=== PATIENT | female | born 1985 | race Caucasian/White ===

== ENCOUNTER 2016-07-28 19:27 | Emergency (ER) | payer OTHER ==
[~2016-07-28] VITALS: Ht 172.7 cm; Wt 72.0 kg
[~2016-07-28 19:27] MED LIST: CLAR10TA7 PO
[2016-07-28 19:29] VITALS: BP 127/64; PULSE 96; RESP 16; TEMP 97.7; O2SAT 100
[2016-07-28 19:41] VITALS: PULSE 95; RESP 16; O2SAT 100
[2016-07-28] MEDS ORDERED: PROG100C PO (19:45)
[2016-07-28] MEDS ORDERED: ASPI81CH CHEW (19:45)
[2016-07-28] MEDS ORDERED: SODIUM CHLOR 0.9% 1000 ML INJ 1,000 ML IV ONE (19:50)
[2016-07-28] MEDS ORDERED: SODIUM CHLORIDE 0.9% FLUSH 5 ML FLUSH IVF PRN (20:00)
[2016-07-28 20:02] LABS: AUTOMATED NEUTROPHIL # 12.2 TH/MM3 (1.8-7.7); BASOPHIL % 0.3 % (0.0-2.0); EOSINOPHIL % 0.2 % (0.0-4.0); HEMATOCRIT 39.5 % (35.0-46.0); HEMO FLAGS DIFF FINAL; LYMPH % 6.8 % (9.0-44.0); LYMPHOCYTE # 0.9 TH/MM3 (1.0-4.8); MEAN CELL VOLUME 86.6 FL (80.0-100.0); MEAN CORPUSCULAR HEMOGLOBIN 29.7 PG (27.0-34.0); MEAN CORPUSCULAR HGB CONC 34.3 % (32.0-36.0); MONO % 2.2 % (0.0-8.0); NEUT % 90.5 % (16.0-70.0); PLATELET COUNT 271 TH/MM3 (150-450); RED BLOOD COUNT 4.56 MIL/MM3 (4.00-5.30); RED CELL DISTRIBUTION WIDTH 13.1 % (11.6-17.2); WHITE BLOOD COUNT 13.5 TH/MM3 (4.0-11.0)
--- NOTE | 2016-07-28 20:05 | PD ---
HPI Chief Complaint: GI Complaint Time Seen by Provider: 19:42 Travel History International Travel<30 days: No Contact w/Intl Traveler<30days: No Traveled to known affect area: No History of Present Illness HPI Patient is a 31-year-old female who presents to emergency room with complaints of nausea and vomiting and abdominal cramping. Patient reports that she is 12 weeks , reports that she had an episode of nausea vomiting abdominal cramping earlier today, reports that she was concerned that she may be having a miscarriage as she had 2 previous miscarriages which she had similar symptoms. Patient reports that with her first 2 miscarriages, she carried until 8 weeks as well as 6 weeks. Reports that she is being worked up by UNDERWRITING TECHNICIAN at this time for reasons why she had this 2 miscarriages. Patient reports that she did follow up with UNDERWRITING TECHNICIAN and did have an 8 week ultrasound which showed a viable IUP with good heart rate. Patient reports no abdominal pain at this time. Patient denies vaginal bleeding or discharge. Patient denies abdominal pain. Patient denies nausea or vomiting. Patient here because she is concerned about her . [facility] Past Medical History ADD: Yes Diminished Hearing: No Influenza Vaccination: No ?: : 0 Para: 0 Miscarriage: 0 : 0 Dilation and Curettage (D&C): Yes Past Surgical History Gynecologic Surgery: Yes (LEFT BREAST LUMPECTOMY 2004) Other Surgery: Yes (LUMPECTOMY L BREAST) Family History Family History: Negative Social History Alcohol Use: No (2 DRINKS A WEEK) Tobacco Use: Yes (07/22- PPD) Substance Use: No Allergies-Medications (Allergen,Severity, Reaction): Coded Allergies: Amoxicillin (Verified Allergy, Severe, HIVES, 07/28/16) Penicillin (Verified Allergy, Severe, HIVES, 07/28/16) Reported Meds & Prescriptions Reported Meds & Active Scripts Active Reported Aspirin 81 Mg Chew 81 Mg CHEW DAILY Progesterone Micronized 100 Mg Cap 100 Mg PO TID Review of Systems General / Constitutional: No: Fever Eyes: No: Visual changes HENT: No: Headaches Cardiovascular: No: Chest Pain or Discomfort Respiratory: No: Shortness of Breath Gastrointestinal: Positive: Nausea, Vomiting, No: Diarrhea, Abdominal Pain, Constipation Genitourinary: No: Urgency, Frequency, Dysuria, Hematuria, Pelvic Pain, Flank Pain, Discharge, Vaginal Bleeding Musculoskeletal: No: Pain Skin: No Rash Neurologic: No: Weakness Psychiatric: No: Depression Endocrine: No: Polydipsia Hematologic/Lymphatic: No: Easy Bruising Physical Exam Narrative GENERAL: No acute distress, nontoxic SKIN: Warm and dry. HEAD: Atraumatic. Normocephalic. EYES: Pupils equal and round. No scleral icterus. No injection or drainage. ENT: No nasal bleeding or discharge. Mucous membranes pink and moist. NECK: Trachea midline. No JVD. CARDIOVASCULAR: Regular rate and rhythm. No murmur appreciated. RESPIRATORY: No accessory muscle use. Clear to auscultation. Breath sounds equal bilaterally. GASTROINTESTINAL: Abdomen soft, non-tender, nondistended. Hepatic and splenic margins not palpable. MUSCULOSKELETAL: No obvious deformities. No clubbing. No cyanosis. No edema. NEUROLOGICAL: Awake and alert. No obvious cranial nerve deficits. Motor grossly within normal limits. Normal speech. PSYCHIATRIC: Appropriate mood and affect; insight and judgment normal. Data Data Last Documented VS Vital Signs Date Time Temp Pulse Resp B/P Pulse Ox O2 Delivery O2 Flow Rate FiO2 07/28/16 19:41 95 16 100 07/28/16 19:29 97.7 Orders Beta Hcg (Quant/Titer) (07/28/16 19:50) Complete Blood Count With Diff (07/28/16 19:50) Basic Metabolic Panel (Bmp) (07/28/16 19:50) Us Pelvis (Ques Preg/Ectopic) (07/28/16 ) Urinalysis - C+S If Indicated (07/28/16 19:50) Iv Access Insert/Monitor (07/28/16 19:50) Sodium Chloride 0.9% Flush (Ns Flush) (07/28/16 20:00) Sodium Chlor 0.9% 1000 Ml Inj (Ns 1000 M (07/28/16 19:50) Ed Urine Pregnancytest Poc (07/28/16 19:50) Labs Laboratory Tests Test 07/28/16 07/28/16 19:55 19:58 White Blood Count 13.5 TH/MM3 Red Blood Count 4.56 MIL/MM3 Hemoglobin 13.5 GM/DL Hematocrit 39.5 % Mean Corpuscular Volume 86.6 FL Mean Corpuscular Hemoglobin 29.7 PG Mean Corpuscular Hemoglobin 34.3 % Concent Red Cell Distribution Width 13.1 % Platelet Count 271 TH/MM3 Mean Platelet Volume 8.1 FL Neutrophils (%) (Auto) 90.5 % Lymphocytes (%) (Auto) 6.8 % Monocytes (%) (Auto) 2.2 % Eosinophils (%) (Auto) 0.2 % Basophils (%) (Auto) 0.3 % Neutrophils # (Auto) 12.2 TH/MM3 Lymphocytes # (Auto) 0.9 TH/MM3 Monocytes # (Auto) 0.3 TH/MM3 Eosinophils # (Auto) 0.0 TH/MM3 Basophils # (Auto) 0.0 TH/MM3 CBC Comment DIFF FINAL Differential Comment Sodium Level 136 MEQ/L Potassium Level 4.0 MEQ/L Chloride Level 104 MEQ/L Carbon Dioxide Level 23.2 MEQ/L Anion Gap 9 MEQ/L Blood Urea Nitrogen 11 MG/DL Creatinine 0.52 MG/DL Estimat Glomerular Filtration 137 ML/MIN Rate Random Glucose 99 MG/DL Calcium Level 8.4 MG/DL Human Chorionic Gonadotropin, 84742 MIU/ML Quant Urine Color YELLOW Urine Turbidity CLEAR Urine pH 6.0 Urine Specific Dix 1.009 Urine Protein NEG mg/dL Urine Glucose (UA) NEG mg/dL Urine Ketones NEG mg/dL Urine Occult Blood NEG Urine Nitrite NEG Urine Bilirubin NEG Urine Urobilinogen LESS THAN 2.0 MG/DL Urine Leukocyte Esterase NEG Urine RBC LESS THAN 1 /hpf Urine WBC 2 /hpf Urine Squamous Epithelial 4 /hpf Cells Urine Bacteria OCC /hpf Urine Mucus FEW /lpf Microscopic Urinalysis Comment CULT NOT INDICATED MDM Medical Decision Making Medical Screen Exam Complete: Yes Emergency Medical Condition: Yes Interpretation(s) Vital Signs Date Time Temp Pulse Resp B/P Pulse Ox O2 Delivery O2 Flow Rate FiO2 07/28/16 19:41 95 16 100 07/28/16 19:29 97.7 96 16 127/64 100 Differential Diagnosis threatened miscarriage, gastoenteritis, gastritis Narrative Course Patient is a 31-year-old female who is 12 weeks who presents to ER with c/o of lower abdominal cramping with nausea and vomiting. Patient reports that the last time she had these symptoms, she had 2 miscarriages. Pt concerned about her . Patient with no vaginal bleeding or discharge at this time. Patient with no abdominal pain. Plan to obtain pelvic US Patient does have an appointment with senior product development scientist this following week Reviewed all labs and all studies with patient in detail. Patient given copy of her lab work as well as her copy of her ultrasound. Patient with a single live IUP with cardiac activity with heart rate at 171 bpm, no evidence of adnexal mass or free fluid Patient will follow-up with her UNDERWRITING TECHNICIAN and return to ER as needed, signs and symptoms of when to return to the emergency room reviewed with patient in detail. Diagnosis Primary Impression: Threatened Patient Instructions: General Instructions Additional Instructions: Please follow-up with your UNDERWRITING TECHNICIAN as scheduled Return to ER as needed Please bring your lab work as well as her ultrasound report to doctor's office for follow-up on your studies from today. Disposition: 01 DISCHARGE HOME Condition: Stable Vijaya Palumbo DO Jul 28, 2016 20:05 Vijaya Palumbo DO Jul 28, 2016 20:05
[2016-07-28 20:27] LABS: BICARBONATE 23.2 MEQ/L (21.0-32.0)
[2016-07-28 20:29] LABS: BACTERIA, URINE OCC /hpf; BLOOD, URINE NEG (NEG); COMMENT (UR) CULT NOT INDICATED; CULTURE IF INDICATED CULT NOT INDICATED; GLUCOSE,URINE NEG (NEG); KETONE, URINE NEG (NEG); MUCUS URINE FEW /lpf (OCC); NITRITE,URINE NEG (NEG); SQUAMOUS EPITHELIAL CELL URINE 4 /hpf (0-5); URINE COLOR YELLOW (YELLW/STRAW)
--- NOTE | 2016-07-28 21:24 | RADRPT ---
EXAM DATE/TIME: 07/28/2016 20:36 [place] COMPARISON: No previous studies available for comparison. INDICATIONS : Ectopic. LAB(S): Beta-hC MEDICAL HISTORY : . SURGICAL HISTORY : Left breast lumpectomy. Left knee surgery. Dilation and curettage. ENCOUNTER: Initial ACUITY: 1 day PAIN SCORE: 8/10 LOCATION: Bilateral pelvis MEASUREMENTS: UTERUS: 14.8 x 9.2 x 5.2 cm ENDOMETRIAL STRIPE: 15 mm RIGHT OVARY: 3.7 x 2.2 x 1.8 cm LEFT OVARY: 3.6 x 1.8 x 1.7 cm FINDINGS: There is a single intrauterine with cardiac activity. The crown-rump length correlates to a gestational age of 12 weeks 0 days. heart rate was calculated at 171 bpm. No adnexal mass o r free fluid within the cul-de-sac is noted. The ovaries are unremarkable bilaterally. CONCLUSION: 1. Single intrauterine with cardiac activity with a crown-rump length correlating to a ges tational age of 12 weeks 0 days. 2. No evidence of adnexal mass or free fluid within the cul-de-sac. Deejay Hernandez MD on July 28, 2016 at 21:18 Board Certified Radiologist. This report was verified electronically.
== END 2016-07-28 21:51 | disposition home or self-care (01) ==
LOC: NEPC 19:27
DX: Z3A.12 12 weeks gestation of pregnancy (principal); O20.0 Threatened abortion; O09.891 Supervision of other high risk pregnancies, first trimester
CPT/HCPCS: 76700; 80048; 81001; 84702; 84703; 85025; 96360; 99284; J7030

== ENCOUNTER → 2016-08-06 | Outpatient (CLI) | payer OTHER ==
[~2016-08-06] MED LIST changes: +ASPI81CH CHEW; -CLAR10TA7 PO; +PROG100C PO
== END ==
LOC: HPND 13:00
PROVIDERS: ATTEND Obstetrics & Gynecology
DX: Z36 Encounter for antenatal screening of mother (principal); O26.20 Pregnancy care for patient with recurrent pregnancy loss, unspecified trimester; Z3A.13 13 weeks gestation of pregnancy
CPT/HCPCS: 36416; 76813

== ENCOUNTER 2016-10-19 18:08 | Emergency (ER) | payer OTHER ==
--- NOTE | 2016-10-19 19:33 | PD ---
HPI Chief Complaint decreased movement Date Seen: Oct 19, 2016 Travel History International Travel<30 Days: No Contact w/Intl Traveler<30Days: No Known Affected Area: No History of Present Illness HPI Patient is 31-year-old white female at 23-1/2 weeks presents for evaluation of decreased movement. She denies pain leakage or bleeding. She sees Dr. cline for care. Para: 0 : 3 History Obstetric History Obstetric History 2 previous early losses Past Surgical History Narrative Surgical She had a D&C , knee surgery Social History Alcohol Use: No Tobacco Use: No Substance Abuse: No Allergies-Medications (Allergen,Severity, Reaction): Coded Allergies: Amoxicillin (Verified Allergy, Severe, HIVES, 07/28/16) Penicillin (Verified Allergy, Severe, HIVES, 07/28/16) Home Meds Reported Medications Aspirin 81 Mg Chew81 Mg CHEW DAILY Ref 0 07/28/16 Progesterone Micronized 100 Mg [id number] Mg PO TID #30 CAP Ref 0 07/28/16 Review of Systems General / Constitutional: No: Fever, Weight Gain, Chills, Other Eyes: No: Diploplia, Blurred Vision, Visual changes, Pain, Photophobia HENT: No: Headaches, Vertigo, Lightheadedness Cardiovascular: No: Irregular Rhythm, Chest Pain or Discomfort, Palpitations, Tachycardia, Syncope, Varicosities, Edema, Cyanosis Respiratory: No: Cough, Short of Breath, Other Gastrointestinal: No: Nausea, Vomiting, Diarrhea Genitourinary: No: Decreased Urinary Output, Oliguria Musculoskeletal: No: Limited ROM, Weakness, Cramping, Edema, Pain Skin: No Rash, No Itching, No Dryness, No Lumps, No Change in Pigmentation, No Change in Nails, No Alopecia, No Lesions Neurologic: No: Weakness, Dizziness, Syncope, Focal Abnormalities, Coordination Problem, Headache, Slurred Speech, Seizures Psychiatric: No: Depression, Suicidal Ideations, Homicidal Ideation Endocrine: No: Heat Intolerance, Cold Intolerance, Polydipsia, Polyuria, Other Physical Exam Narrative GENERAL: Well-nourished, well-developed patient. SKIN: Warm and dry. HEAD: Normocephalic and atraumatic. EYES: No scleral icterus. No injection or drainage. ENT: No nasal drainage noted. Mucous membranes pink. Airway patent. NECK: Supple, trachea midline. No JVD. CARDIOVASCULAR: Regular rate and rhythm without murmurs, gallops, or rubs. RESPIRATORY: Breath sounds equal bilaterally. No accessory muscle use. BREASTS: Bilateral exam showed no masses , no retractions, no nipple discharge. ABDOMEN/GI: Abdomen soft, non-tender, bowel sounds present, no rebound, no guarding Gravid to [23-] weeks size Fundal Height: [23-] GENITOURINARY: Presentation: [vtx-] Membranes: [intact ] Uterine Contractions: [ none-] FHT's: 144 ] EXTREMITIES: No cyanosis or edema. BACK: Nontender without obvious deformity. No CVA tenderness. NEUROLOGICAL: Awake and alert. Motor and sensory grossly within normal limits. Five out of 5 muscle strength in all muscle groups. Normal speech. Data Data Orders Ob Poc Ultrasound (10/19/16 ) Labs Ultrasound was done here on OB ED by means at the bedside. Ultrasound shows an active cephalic female fetus of 22 weeks 6 days size adequate amniotic fluid, normal anatomy scan and growth parameters MDM Interpretation(s) Patient is 31-year-old white female at 23-1/2 weeks who presents with decreased movement. No other acute problems. Obstetric ultrasound done on OB ED tonight shows an active fetus with size equal dates and normal anatomy no problems noted, patient given photographs of baby Plan Plan patient discharged home to follow-up with Dr. cline in the usual fashion return for any other problems Diagnosis Diagnosis: Primary Impression: Decreased movement in in second trimester, antepartum Disposition: 01 DISCHARGE HOME Condition: Stable David Monson II, MD Oct 19, 2016 19:33
== END 2016-10-19 19:52 | disposition home or self-care (01) ==
LOC: HOBED 18:08
DX: O36.8120 Decreased fetal movements, second trimester, not applicable or unspecified (principal); Z3A.23 23 weeks gestation of pregnancy
CPT/HCPCS: 76815

== ENCOUNTER 2016-12-01 22:28 | Emergency (ER) | payer OTHER ==
--- NOTE | 2016-12-01 23:11 | PD ---
HPI Chief Complaint dec FM Date Seen: December 01, 2016 Travel History International Travel<30 Days: No Contact w/Intl Traveler<30Days: No Known Affected Area: No History of Present Illness HPI 31 yo WF 29 wks with dec FM noted tonight , no other problem , tried to eat a cookie and milk but did not increase motion., here in [place] FHR reactive for 29 wks and now she feels baby moving well, she sees Dr Miller for PNC Para: 0 : 3 Miscarriage: 2 History Obstetric History Obstetric History 2 early preg loss Social History Alcohol Use: No Tobacco Use: No Substance Abuse: No Allergies-Medications (Allergen,Severity, Reaction): Coded Allergies: Amoxicillin (Verified Allergy, Severe, HIVES, 07/28/16) Penicillin (Verified Allergy, Severe, HIVES, 07/28/16) Home Meds Reported Medications Aspirin 81 Mg Chew81 Mg CHEW DAILY Ref 0 07/28/16 Progesterone Micronized 100 Mg [id number] Mg PO TID #30 CAP Ref 0 07/28/16 Review of Systems General / Constitutional: No: Fever, Weight Gain, Chills, Other Eyes: No: Diploplia, Blurred Vision, Visual changes, Pain, Photophobia HENT: No: Headaches, Vertigo, Lightheadedness Cardiovascular: No: Irregular Rhythm, Chest Pain or Discomfort, Palpitations, Tachycardia, Syncope, Varicosities, Edema, Cyanosis Respiratory: No: Cough, Short of Breath, Other Gastrointestinal: No: Nausea, Vomiting, Diarrhea Genitourinary: No: Decreased Urinary Output, Oliguria Musculoskeletal: No: Limited ROM, Weakness, Cramping, Edema, Pain Skin: No Rash, No Itching, No Dryness, No Lumps, No Change in Pigmentation, No Change in Nails, No Alopecia, No Lesions Neurologic: No: Weakness, Dizziness, Syncope, Focal Abnormalities, Coordination Problem, Headache, Slurred Speech, Seizures Psychiatric: No: Depression, Suicidal Ideations, Homicidal Ideation Endocrine: No: Heat Intolerance, Cold Intolerance, Polydipsia, Polyuria, Other Physical Exam Narrative GENERAL: Well-nourished, well-developed patient. SKIN: Warm and dry. HEAD: Normocephalic and atraumatic. EYES: No scleral icterus. No injection or drainage. ENT: No nasal drainage noted. Mucous membranes pink. Airway patent. NECK: Supple, trachea midline. No JVD. CARDIOVASCULAR: Regular rate and rhythm without murmurs, gallops, or rubs. RESPIRATORY: Breath sounds equal bilaterally. No accessory muscle use. BREASTS: Bilateral exam showed no masses , no retractions, no nipple discharge. ABDOMEN/GI: Abdomen soft, non-tender, bowel sounds present, no rebound, no guarding Gravid to [-29] weeks size Fundal Height: [29-] Membranes: [intact ] Uterine Contractions: [0-] FHT's: Category: [-1] Baseline: [-133] Reactive: [yes-] Variability: [mod-] Decels: [0-] EXTREMITIES: No cyanosis or edema. BACK: Nontender without obvious deformity. No CVA tenderness. NEUROLOGICAL: Awake and alert. Motor and sensory grossly within normal limits. Five out of 5 muscle strength in all muscle groups. Normal speech. MDM Interpretation(s) 31 yo WF 29 wks c/o dec FM , NST reactive here , no CTXs , Plan D/C home Diagnosis Diagnosis: Primary Impression: Decreased movement affecting management of in third trimester Disposition: 01 DISCHARGE HOME Condition: Stable Patient Instructions: General Instructions, Early Labor Signs (ED), Movement (ED) Departure Forms: Tests/Procedures David Monson II, MD December 01, 2016 23:11
== END 2016-12-01 23:41 | disposition home or self-care (01) ==
LOC: HOBED 22:28
DX: O36.8130 Decreased fetal movements, third trimester, not applicable or unspecified (principal); Z3A.29 29 weeks gestation of pregnancy
CPT/HCPCS: 99283

== ENCOUNTER 2017-02-12 16:58 | Inpatient (IN) | payer OTHER ==
[~2017-02-12] VITALS: Ht 165.1 cm; Wt 90.7 kg
[2017-02-12 18:15] LABS: AUTOMATED NEUTROPHIL # 7.4 TH/MM3 (1.8-7.7); BASOPHIL % 0.4 % (0.0-2.0); EOSINOPHIL # 0.1 TH/MM3 (0-0.4); EOSINOPHIL % 1.3 % (0.0-4.0); HEMATOCRIT 36.2 % (35.0-46.0); HEMO FLAGS DIFF FINAL; LYMPH % 17.7 % (9.0-44.0); LYMPHOCYTE # 1.8 TH/MM3 (1.0-4.8); MEAN CELL VOLUME 87.3 FL (80.0-100.0); MEAN CORPUSCULAR HEMOGLOBIN 30.5 PG (27.0-34.0); MEAN CORPUSCULAR HGB CONC 34.9 % (32.0-36.0); MONO % 8.7 % (0.0-8.0); NEUT % 71.9 % (16.0-70.0); PLATELET COUNT 220 TH/MM3 (150-450); RED BLOOD COUNT 4.14 MIL/MM3 (4.00-5.30); RED CELL DISTRIBUTION WIDTH 14.2 % (11.6-17.2); WHITE BLOOD COUNT 10.2 TH/MM3 (4.0-11.0)
[2017-02-12 18:25] LABS: BACTERIA, URINE RARE /hpf; BLOOD, URINE NEG (NEG); COMMENT (UR) CULT NOT INDICATED; CULTURE IF INDICATED CULT NOT INDICATED; GLUCOSE,URINE NEG (NEG); KETONE, URINE NEG (NEG); NITRITE,URINE NEG (NEG); SQUAMOUS EPITHELIAL CELL URINE 1 /hpf (0-5); URINE COLOR LIGHT-YELLOW (YELLW/STRAW)
[2017-02-12] MEDS ORDERED: Valtrex (18:58)
[2017-02-12] MEDS ORDERED: Prenatal Vitamin PO (18:58)
[2017-02-12] MEDS ORDERED: OXYTOCIN 30 UNITS 500ML PREMIX IV ONE (19:15)
[2017-02-12] MEDS ORDERED: NS 1000 ML IV PRN (19:15)
[2017-02-12] MEDS ORDERED: LIDOCAINE HCL 1% 50 ML VIAL I-DERMAL PRN (19:15)
[2017-02-12] MEDS ORDERED: LIDOCAINE HCL 1% 50 ML VIAL INFIL PRN (19:15)
[2017-02-12] MEDS ORDERED: NS 500 ML BOLUS IV PRN (19:15)
[2017-02-12] MEDS ORDERED: LACTATED RINGER'S 1000 ML IV SCH (19:15)
[2017-02-12] MEDS ORDERED: MINERAL OIL 10 ML VIAL TOPICAL PRN (19:15)
[2017-02-12] MEDS ORDERED: LACTATED RINGER'S 1000 ML BOLUS IV PRN (19:15)
[2017-02-12] MEDS ORDERED: CITRIC ACID-SODIUM CITRATE LIQ 30 ML UDC PO SCH (19:15)
[2017-02-12] MEDS ORDERED: DINOPROSTONE 10 MG INSERT-LEAVE FOR 12 HOURS VAGINAL ONE (19:30)
[2017-02-12 20:11] VITALS: BP 116/68; PULSE 86
[2017-02-12 20:15] VITALS: RESP 18; TEMP 98.2
[2017-02-12] MEDS ORDERED: ONDANSETRON HCL 4 MG/2 ML VIAL IV PUSH PRN (21:45)
[2017-02-12] MEDS ORDERED: ZOLPIDEM TARTRATE 10 MG TAB PO ONE (21:45)
[2017-02-13] VITALS (64 sets, daily range): BP systolic 94–130; BP diastolic 52–89; PULSE 55–126; RESP 18; TEMP 97.5–98; O2SAT 100
[2017-02-13] MEDS ORDERED: OXYTOCIN 30 UNITS/NS 500ML PREMIX IV SCH (09:45)
[2017-02-13] MEDS ORDERED: LACTATED RINGER'S 1000 ML INJ 1,000 ML IV SCH (13:04)
--- NOTE | 2017-02-13 15:31 | MH ---
cc: [facility] DATE OF ADMISSION 02/12/2017 DATE OF 1985 ADMISSION DIAGNOSIS at 40-41 weeks. HISTORY OF PRESENT ILLNESS This is a 31-year-old white female para 0-0-2-0 with EDC of 02/10/2017 by early ultrasound. Her course has been benign. She is now admitted for induction of labor for post date status. PAST MEDICAL HISTORY Previous surgery: Left ankle arthroscopy ALLERGIES PENICILLIN TRANSFUSIONS None MEDICATIONS Vitamins OBSTETRICAL HISTORY Two previous spontaneous abortions. The one in 2014 required D&C. The one in 2015 did not. SOCIAL HISTORY She is a teacher. She is . Alcohol, tobacco and drugs are none. FAMILY HISTORY Noncontributory PHYSICAL EXAM This is a well-nourished, well-developed white female. VITAL SIGNS: Stable. HEENT: Exam is normal. CHEST: Clear. CARDIAC: Regular rate. BREASTS: The breasts are symmetrical. ABDOMEN: Gravid. EFW of 3800 grams. PELVIC: Cervix is closed. Vertex. Strep culture is negative, herpes screen culture is negative. ASSESSMENT As above. PLAN She is now admitted for Cervidil. We will plan for Pitocin tomorrow. Should she have failure to progress or distress, we will proceed with section. MD NATHALIE Phillips/MADELIN /10:40 AM /3:25 PM
[2017-02-13] MEDS ORDERED: OXYTOCIN 10 UNIT/ML AMP ONE (16:09)
[2017-02-13] MEDS ORDERED: ceFAZolin INJ 1,000 MG VIAL ONE (16:09)
[2017-02-13] MEDS ORDERED: ONDANSETRON HCL 4 MG/2 ML VIAL ONE (16:33)
[2017-02-13] MEDS ORDERED: ACETAMINOPHEN 1000 MG/100 ML VIAL IV ONE (16:33)
[2017-02-13] MEDS ORDERED: MORPHINE SULFATE PF 5 MG/10 ML VIAL ONE (16:34)
[2017-02-13] MEDS ORDERED: ACETAMINOPHEN 1000 MG/100 ML VIAL IV SCH (17:15)
[2017-02-13] MEDS ORDERED: SIMETHICONE 80 MG CHEWABLE TAB PO PRN (17:15)
[2017-02-13] MEDS ORDERED: KETOROLAC TROMETHAMINE 60 MG/2 ML (IM) VIAL IM PRN (17:15)
[2017-02-13] MEDS ORDERED: OXYTOCIN 30 UNITS-500ML PREMIX 500 ML IV ONE (17:15)
[2017-02-13] MEDS ORDERED: DOCUSATE SODIUM 50 MG/SENNA 8.6 MG TAB PO PRN (17:15)
[2017-02-13] MEDS ORDERED: KETOROLAC TROMETHAMINE 30 MG/ML (IVP) VIAL IV PUSH PRN (17:15)
[2017-02-13] MEDS ORDERED: SODIUM CHLORIDE 0.9% FLUSH 5 ML FLUSH IV PRN (17:15)
[2017-02-13] MEDS ORDERED: MEASLES, MUMPS, RUBELLA VACCINE 0.5 ML VIAL SQ ONE (17:15)
[2017-02-13] MEDS ORDERED: ZOLPIDEM TARTRATE 5 MG TAB PO PRN (17:15)
[2017-02-13] MEDS ORDERED: ONDANSETRON HCL 4 MG/2 ML VIAL IVP PRN (17:15)
[2017-02-13] MEDS ORDERED: oxyCODONE/ACETAMINOPHEN 5 MG/325 MG TAB PO PRN (17:15)
[2017-02-13] MEDS ORDERED: OXYTOCIN 30 UNITS-500ML PREMIX 500 ML IV PRN (18:15)
[2017-02-13] MEDS ORDERED: EPIDURAL-NO SYSTEMIC NARCOTICS PRN (19:15)
[2017-02-13] MEDS ORDERED: EPIDURAL-DIPHENHYDRAMINE HCL 50 MG CAP PO PRN (19:15)
[2017-02-13] MEDS ORDERED: EPIDURAL-DIPHENHYDRAMINE HCL 50 MG/ML VIAL IV PUSH PRN (19:15)
[2017-02-13] MEDS ORDERED: EPIDURAL-NALOXONE HCL 0.4 MG/ML AMP IV PRN (19:15)
[2017-02-13] MEDS ORDERED: EPIDURAL-DO NOT ADMINISTER ANTICOAGULANTS PRN (19:15)
[2017-02-13] MEDS ORDERED: SODIUM CHLORIDE 0.9% FLUSH 5 ML FLUSH IV SCH (21:00)
[2017-02-13] MEDS ORDERED: ZOLPIDEM TARTRATE 10 MG TAB PO PRN (21:00)
[2017-02-13] MEDS: ACETAMINOPHEN 1000 MG/100 ML VIAL IV SCH (23:59)
[2017-02-14] VITALS: BP 119/62; PULSE 78; RESP 18; TEMP 98.6
[2017-02-14 05:00] VITALS: BP 92/53; PULSE 78; RESP 18; TEMP 98.1
[2017-02-14] MEDS: IBUPROFEN 600 MG TAB PO PRN ×3 (05:34→22:26)
[2017-02-14 07:29] LABS: AUTOMATED NEUTROPHIL # 9.3 TH/MM3 (1.8-7.7); BASOPHIL % 0.2 % (0.0-2.0); EOSINOPHIL # 0.1 TH/MM3 (0-0.4); EOSINOPHIL % 0.7 % (0.0-4.0); HEMATOCRIT 37.4 % (35.0-46.0); HEMO FLAGS DIFF FINAL; LYMPH % 10.4 % (9.0-44.0); LYMPHOCYTE # 1.2 TH/MM3 (1.0-4.8); MEAN CELL VOLUME 89.3 FL (80.0-100.0); MEAN CORPUSCULAR HEMOGLOBIN 29.2 PG (27.0-34.0); MEAN CORPUSCULAR HGB CONC 32.6 % (32.0-36.0); MONO % 4.8 % (0.0-8.0); NEUT % 83.9 % (16.0-70.0); PLATELET COUNT 178 TH/MM3 (150-450); RED BLOOD COUNT 4.18 MIL/MM3 (4.00-5.30); RED CELL DISTRIBUTION WIDTH 14.2 % (11.6-17.2); WHITE BLOOD COUNT 11.1 TH/MM3 (4.0-11.0)
[2017-02-14 07:38] LABS: BICARBONATE 22.5 MEQ/L (21.0-32.0); POTASSIUM 3.7 MEQ/L (3.5-5.1)
[2017-02-14 08:00] VITALS: BP 110/66; PULSE 97; RESP 18; TEMP 97.5
[2017-02-14] MEDS: ACETAMINOPHEN 1000 MG/100 ML VIAL IV SCH (08:05)
[2017-02-14 12:18] VITALS: BP 115/64; PULSE 81; RESP 18; TEMP 97.4
[2017-02-14 21:00] VITALS: BP 116/65; PULSE 82; RESP 18; TEMP 98.9
[2017-02-15] MEDS: oxyCODONE/ACETAMINOPHEN 5 MG/325 MG TAB PO PRN ×4 (05:56→21:25)
[2017-02-15] MEDS: IBUPROFEN 600 MG TAB PO PRN ×3 (05:56→21:25)
[2017-02-15 08:00] VITALS: BP 127/77; PULSE 76; RESP 16; TEMP 98.2; O2SAT 97
[2017-02-15] MEDS ORDERED: DIPHTH/TETANUS/ACEL PERTUSSIS (BOOSTER) 0.5 ML VIAL/PFS IM ONE (09:00)
[2017-02-15 20:00] VITALS: BP 119/80; PULSE 79; RESP 20; TEMP 98.1
--- NOTE | 2017-02-15 20:23 | MP ---
cc: MYRANDA MILLER DATE OF SURGERY 02/13/17 PREOPERATIVE DIAGNOSIS 1. at 40-41 weeks. 2. Failure to progress. 3. Non-reassuring heart rate tracing. POSTOPERATIVE DIAGNOSIS 1. at 40-41 weeks. 2. Failure to progress. 3. Non-reassuring heart rate tracing. 4. Delivered PROCEDURE Primary low transverse section. ANESTHESIA Spinal SURGEON Aiden Miller MD CARTRIDGE FILLER Laury Nagel, ESTIMATED BLOOD LOSS About 700 mL FLUIDS 2 liters crystalloid. OBJECTIVE FINDINGS Following induction of adequate spinal anesthesia, the patient was prepped and draped supine on the operating table left lateral tilt position in usual sterile fashion with the bladder being drained via Bellamy catheterization. The abdomen was opened through a Pfannenstiel incision using a knife to cut down through the skin to the fascia. The fascia opened transversely, stripped from the muscles. Rectus muscle split in the midline and the peritoneum opened sharply without incident. The bladder flap was taken down sharply, retracted with [place] blade. The lower uterine segment ___transverse incised with a knife, extended via blunt dissection. clear fluid. Baby is LOT position. The vacuum extractor applied to the occiput and used to gently lift the head through the abdominal wound. Mouth was suctioned, cord clamped and cut and the baby passed to the awaiting team, viable vigorous female, Apgars eight and nine, weight 8 pounds 6 ounces. Cord blood sent for typing, placenta for donation. Uterine cavity clean with laps. Uterus was exteriorized and closed with two layers of running suture, first with running locking stitch of 0 Vicryl second running imbricating stitch of 0 Vicryl. Posterior inspection of the uterus, tubes and ovaries are normal. Uterus placed in cavity. Irrigation was performed, no bleeding was evident and the bladder flap was closed running stitch of 3-0 Vicryl. All lap structures removed. Counts were correct. The anterior peritoneum closed with running 2-0 Vicryl. Fascia closed with running locking stitch of 0 Vicryl corner to midline and tied, subcu with running 3-0 Vicryl. Skin with running stitch of subcuticular 3-0 Monocryl. Dermabond applied. All counts were correct. The patient was awake and taken to recovery room in good condition. MD ISRA Phillips /5:11 PM /8:10 PM
[2017-02-16] MEDS: oxyCODONE/ACETAMINOPHEN 5 MG/325 MG TAB PO PRN ×3 (01:25→10:11)
[2017-02-16 03:20] VITALS: BP 104/79; PULSE 76; RESP 18; TEMP 97.8
[2017-02-16] MEDS: IBUPROFEN 600 MG TAB PO PRN ×2 (05:44→11:28)
[2017-02-16 08:00] VITALS: BP 118/73; PULSE 65; RESP 18; TEMP 97.7
[2017-02-16] MEDS ORDERED: OXYC1TAB63 PO (09:33)
--- NOTE | 2017-02-16 09:33 | HHI.DCPOC ---
Discharge Care Plan Report Symptoms to Your Doctor -Temperature above 100.5 degrees -Redness, of incision or excessive or foul smelling drainage -Unusual pain or calf pain -Increased vaginal bleeding -Painful or difficulty urinating -Feelings of extreme sadness or anxiety after 2 weeks Goals to Promote Your Health * To prevent worsening of your condition and complications * To maintain your health at the optimal level Directions to Meet Your Goals Take your medications as prescribed Follow your dietary instruction Follow activity as directed Ensure plenty of rest for recovery Drink fluids for hydration Keep your appointments as scheduled Take your immunizations and boosters as scheduled If your symptoms worsen call your PCP, if no PCP go to Urgent Care Center or Emergency Room Smoking is Dangerous to Your Health. Avoid second hand smoke Call the 24-hour crisis hotline for domestic abuse at Dillan Miller MD Feb 16, 2017 09:33
--- NOTE | 2017-02-19 07:26 | MD ---
cc: MYRANDA HOUGH ADMISSION DATE: 02/12/2017 DISCHARGE DATE: 02/16/2017 HISTORY OF PRESENT ILLNESS The patient is a 31-year-old white female para 0-0-2-0 with EDC of 02/10/2017 by early ultrasound. Her course was benign. She required progesterone support until 12 weeks and a baby aspirin until 37. Her labs include Rh-positive, VDRL nonreactive, rubella immune, rubeola immune, HAA negative, Pap negative. Glucose screen was normal. Strep culture and herpes screen culture were negative. She received Valtrex prophylaxis for the last four weeks of . HOSPITAL COURSE She became postdates and desired induction of labor, admitted on 02/12/2017, received Cervidil on the night of admission, Pitocin was begun the next day. She failed to progress and the baby began to have late decelerations. Induction was stopped and she underwent a primary low transverse section with delivery of a viable vigorous female, Apgars were 8 and 9, weight 8 pounds, 6 ounces. The baby was named Froilan Ordoñez and she was breast-feeding. Her pre and postop labs were normal. Placenta was positive. DISCHARGE INSTRUCTIONS She was advised NPV, light activity, no driving. She is to return to see me in one week. She is to call for abnormal pain, bleeding, temperature, signs of infection or depression. DISCHARGE MEDICATIONS She was given a prescription for Percocet 5, 1-2 p.o. q.4 hours p.r.n. #60. MD NATHALIE Phillips/SSB /9:35 AM /7:16 AM
== END 2017-02-16 12:56 | disposition home or self-care (01) | DRG 766 ==
LOC: H2EA 16:58 → H1EA 02-13 18:34
PROVIDERS: ADMIT Obstetrics & Gynecology; ATTEND Obstetrics & Gynecology
PROC: 10D00Z1 Extraction of Products of Conception, Low, Open Approach (ICD-10-PCS; principal; 2017-02-13)
PROC: 3E0P7GC Introduction of Other Therapeutic Substance into Female Reproductive, Via Natural or Artificial Opening (ICD-10-PCS; 2017-02-13)
PROC: 3E033VJ Introduction of Other Hormone into Peripheral Vein, Percutaneous Approach (ICD-10-PCS; 2017-02-13)
DX: O32.4XX0 Maternal care for high head at term, not applicable or unspecified (principal); O48.0 Post-term pregnancy; Z37.0 Single live birth; Z3A.41 41 weeks gestation of pregnancy; O76 Abnormality in fetal heart rate and rhythm complicating labor and delivery
CPT/HCPCS: 80048; 81001; 85025; 86900; 86901; 90715; J0131; J0690; J2274; J2405; J2590; J3010; J7120